=== PATIENT | female | born 2000 | race American Indian/Alaskan Native ===

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

== ENCOUNTER 2021-11-15 03:55 | Emergency (ER) | payer SELFPAY ==
[2021-11-15] MEDS ORDERED: predniSONE 20 MG TAB PO ONE (10:05)
[2021-11-15 10:52] LABS: Bilirubin,Urine NEG (Negative); Blood,Urine NEG (Negative); Color,Urine Yellow (Yellow); Mucus,Urine FEW /HPF; Protein,Urine <15 mg/dL mg/dL (Negative); Urobilinogen,Urine < 2.0 mg/dL (<2.0); WBC,Urine < 1.0 /HPF (0.0-6.0)
[2021-11-15 10:54] LABS: HCG Qualitative,Urine Negative (Negative)
--- NOTE | 2021-11-15 11:09 | Emergency Department Report ---
ED Dizziness HPI - General Chief Complaint: Anxiety Stated Complaint: ANXIETY/BRONCHITIS Time Seen by Provider: 11/15/21 09:29 Source: patient, EMS Mode of arrival: Ambulatory Limitations: No Limitations - History of Present Illness Initial Comments: 20-year-old black female with a past medical history of depression presents to the emergency department for evaluation of dizziness. She states that around 2 AM she was trying to get home and had sudden onset of dizziness and states that it was also hard for her to swallow with coughing, nausea, headache, and runny nose. She denies fever and sick contacts. She states that she has not taken any medication for her symptoms but came to the emergency department for further evaluation. MD Complaint: dizziness -: Sudden, hour(s) Timing: sudden onset Description: lightheadedness History of Same: No History of Trauma: No Severity: moderate Associated Symptoms: cough. denies: ataxia, chest pain, confusion, diaphoresis, fever/chills, loss of appetite, malaise, rash, seizure, shortness of breath, syncope, weakness - Related Data Previous Rx's Medication Instructions Recorded Last Taken Type Amoxicillin/K Clav Tab [Augmentin 1 tab PO Q12HR #20 tab 01/11/20 Unknown Rx 875 mg] Ondansetron [Zofran Odt] 4 mg PO Q8HR #14 tab.rapdis 01/11/20 Unknown Rx Dicyclomine [Bentyl] 20 mg PO QID PRN #20 tablet 06/08/20 Unknown Rx Ferrous Sulfate [Ferrous Sulfate 324 mg PO DAILY #30 tablet. 06/27/20 Unknown Rx 324 MG] Ibuprofen [Motrin 800 MG tab] 800 mg PO Q8HR #30 tablet 06/27/20 Unknown Rx Levocetirizine Dihydrochloride 5 mg PO QPM #15 tab 11/15/21 Unknown Rx [Xyzal] Allergies Allergy/AdvReac Type Severity Reaction Status Date / Time aripiprazole [From Abilify] Allergy Hives Verified 06/27/20 18:46 sertraline [From Zoloft] Allergy Headache Verified 06/27/20 18:46 ED Review of Systems ROS: Stated complaint: ANXIETY/BRONCHITIS Other details as noted in HPI Comment: All other systems reviewed and negative Constitutional: denies: chills, fever Eyes: eye pain. denies: vision change ENT: congestion Respiratory: cough. denies: shortness of breath, SOB with exertion, SOB at rest, stridor, wheezing Cardiovascular: denies: chest pain, palpitations, dyspnea on exertion, orthopnea, edema, syncope, paroxysmal nocturnal dyspnea Gastrointestinal: denies: abdominal pain, nausea, vomiting Genitourinary: denies: urgency, dysuria Skin: denies: rash, lesions Neurological: headache. denies: weakness, numbness, paresthesias, confusion, abnormal gait ED Past Medical Hx - Past Medical History Hx Hypertension: Yes Hx Psychiatric Treatment: Yes (Depression) Additional medical history: HIGH CHOLESTROL. Leaky heart syndrome. Morbid Obesity, anemia - Surgical History Additional Surgical History: IN SEPTEMBER 2019 - Social History Smoking Status: Never Smoker - Medications Home Medications: Home Medications Medication Instructions Recorded Confirmed Last Taken Type Amoxicillin/K Clav Tab [Augmentin 1 tab PO Q12HR #20 tab 01/11/20 Unknown Rx 875 mg] Ondansetron [Zofran Odt] 4 mg PO Q8HR #14 tab.rapdis 01/11/20 Unknown Rx Dicyclomine [Bentyl] 20 mg PO QID PRN #20 tablet 06/08/20 Unknown Rx Ferrous Sulfate [Ferrous Sulfate 324 mg PO DAILY #30 tablet.dr 06/27/20 Unknown Rx 324 MG] Ibuprofen [Motrin 800 MG tab] 800 mg PO Q8HR #30 tablet 06/27/20 Unknown Rx Levocetirizine Dihydrochloride 5 mg PO QPM #15 tab 11/15/21 Unknown Rx [Xyzal] ED Physical Exam - General Limitations: No Limitations General appearance: alert, in no apparent distress - Head Head exam: Present: atraumatic, normocephalic - Eye Eye exam: Present: normal appearance. Absent: conjunctival injection - ENT ENT exam: Absent: normal exam (Bilateral nasal mucosal edema with tenderness to bilateral frontal sinus areas), normal orophraynx (Erythema noted to posterior oropharynx) - Neck Neck exam: Present: normal inspection, full ROM. Absent: tenderness, lymphadenopathy - Respiratory Respiratory exam: Present: normal lung sounds bilaterally, chest wall tenderness. Absent: respiratory distress, wheezes, rales, rhonchi, stridor - Cardiovascular Cardiovascular Exam: Present: regular rate, normal heart sounds - GI/Abdominal GI/Abdominal exam: Present: soft, normal bowel sounds. Absent: distended, tenderness, guarding, rebound, rigid - Extremities Exam Extremities exam: Present: normal inspection, full ROM, normal capillary refill. Absent: tenderness, pedal edema, joint swelling, calf tenderness - Back Exam Back exam: Present: normal inspection. Absent: CVA tenderness (R), CVA tenderness (L), vertebral tenderness - Neurological Exam Neurological exam: Present: alert, oriented X3, normal gait - Psychiatric Psychiatric exam: Present: normal affect, normal mood - Skin Skin exam: Present: warm, dry, intact, normal color ED Course Vital Signs 11/15/21 11/15/21 04:10 11:21 Temperature 98 F 98.2 F Pulse Rate 84 86 Respiratory 18 20 Rate Blood Pressure 130/76 148/99 [Right] O2 Sat by Pulse 100 99 Oximetry ED Medical Decision Making - Medical Decision Making 20-year-old black female with a past medical history of depression presents to the emergency department for evaluation of dizziness. She states that around 2 AM she was trying to get home and had sudden onset of dizziness and states that it was also hard for her to swallow with coughing, nausea, headache, and runny nose. She denies fever and sick contacts. She states that she has not taken any medication for her symptoms but came to the emergency department for further evaluation. Urine negative for UTI and . Assessment consistent with sinusitis. Patient given one-time dose of prednisone in the emergency department will be discharged home with Xyzal to take every night. She is advised to take medications as prescribed, increase noncaffeinated fluid intake, follow-up with primary care provider for further evaluation and management, and return to the emergency department as needed. She verbalizes understanding of and agreement with plan of care. Critical care attestation.: If time is entered above; I have spent that time in minutes in the direct care of this critically ill patient, excluding procedure time. ED Disposition Clinical Impression: Sinusitis Qualifiers: Sinusitis location: frontal Chronicity: acute Recurrence: non-recurrent Qualified Code(s): J01.10 - Acute frontal sinusitis, unspecified Disposition: HOME / SELF CARE / HOMELESS Is pt being admited?: No Does the pt Need Aspirin: No Condition: Stable Instructions: Sinusitis, Adult, [id number], How to Perform a Sinus Rinse, [id number] Additional Instructions: Take medications as prescribed. Follow-up with primary care provider if no improvement or worsening symptoms. Return to the emergency department as needed. Prescriptions: Levocetirizine Dihydrochloride [Xyzal] 5 mg PO QPM #15 tab Referrals: PETE KO MD [Staff Physician] - 3-5 Days Forms: Work/School Release Form(ED) Time of Disposition: 11:09
[2021-11-15 11:22] VITALS: BP 148/99
== END 2021-11-15 11:40 | disposition home or self-care (01) ==
LOC: ED 03:55
DX: J01.90 Acute sinusitis, unspecified (principal); Z88.1 Allergy status to other antibiotic agents; I10 Essential (primary) hypertension
CPT/HCPCS: 81001; 81025; 99283

== ENCOUNTER 2021-11-29 17:09 | Emergency (ER) | payer MEDICAID ==
[2021-11-29 17:45] VITALS: BP 155/95
== END 2021-11-30 14:47 | disposition left against medical advice (07) ==
LOC: ED 17:09
DX: M79.89 Other specified soft tissue disorders (principal); Z53.21 Procedure and treatment not carried out due to patient leaving prior to being seen by health care provider

== ENCOUNTER 2021-11-30 01:32 | Emergency (ER) | payer MEDICAID ==
[2021-11-30 08:09] VITALS: BP 171/79
--- NOTE | 2021-11-30 09:17 | Emergency Department Report ---
ED General Adult HPI - General Chief complaint: Abdominal Pain Stated complaint: LIGHT HEADED/LEG SWOLLEN Time Seen by Provider: 11/30/21 08:48 Source: patient Mode of arrival: Ambulatory Limitations: No Limitations - History of Present Illness Initial comments: Is a 20-year-old female with history of obesity, abnormal menses. Patient presents for episode of dizziness lightheadedness. On yesterday. Patient states she usually walks 1 mile plus daily however yesterday she experienced an episode of dizziness and lightheadedness. Concern for last menstrual cycle 7 months ago patient notes irregular menses. Has been no fevers no chills no nausea or vomiting. Patient does note bilateral lower extremity swelling x2 weeks. Swelling is usually relieved with rest and lying down. In generally returns by the end of each day. Ther is no chest pain,no shortness of breath, no stridor, no history of hypertension is been no fall injury or trauma, there is been no fever or chills. Patient drove self to ED patient is amatory with steady gait there is no acute distress at this time. Severity scale (0 -10): 2 - Related Data Previous Rx's Medication Instructions Recorded Last Taken Type Amoxicillin/K Clav Tab [Augmentin 1 tab PO Q12HR #20 tab 01/11/20 Unknown Rx 875 mg] Ondansetron [Zofran Odt] 4 mg PO Q8HR #14 tab.rapdis 01/11/20 Unknown Rx Dicyclomine [Bentyl] 20 mg PO QID PRN #20 tablet 06/08/20 Unknown Rx Ferrous Sulfate [Ferrous Sulfate 324 mg PO DAILY #30 tablet. 06/27/20 Unknown Rx 324 MG] Ibuprofen [Motrin 800 MG tab] 800 mg PO Q8HR #30 tablet 06/27/20 Unknown Rx Levocetirizine Dihydrochloride 5 mg PO QPM #15 tab 11/15/21 Unknown Rx [Xyzal] Allergies Allergy/AdvReac Type Severity Reaction Status Date / Time aripiprazole [From Abilify] Allergy Hives Verified 06/27/20 18:46 sertraline [From Zoloft] Allergy Headache Verified 06/27/20 18:46 ED Review of Systems ROS: Stated complaint: LIGHT HEADED/LEG SWOLLEN Other details as noted in HPI Constitutional: denies: chills, fever Eyes: denies: eye pain, eye discharge, vision change ENT: denies: ear pain, throat pain Respiratory: denies: cough, shortness of breath, wheezing Cardiovascular: denies: chest pain, palpitations, dyspnea on exertion, paroxysmal nocturnal dyspnea Endocrine: no symptoms reported Gastrointestinal: denies: abdominal pain, nausea, vomiting, diarrhea Genitourinary: abnormal menses. denies: urgency, dysuria, frequency, hematuria Musculoskeletal: other (Bilateral lower extremity swelling). denies: back pain, joint swelling, arthralgia Skin: denies: rash, lesions Neurological: vertigo. denies: headache, weakness, numbness, paresthesias, confusion Psychiatric: denies: anxiety, depression Hematological/Lymphatic: denies: easy bleeding, easy bruising ED Past Medical Hx - Past Medical History Previous Medical History?: Yes Hx Hypertension: Yes Hx Psychiatric Treatment: Yes (Depression) Additional medical history: HIGH CHOLESTROL. Leaky heart syndrome. Morbid Obesity, anemia - Surgical History Past Surgical History?: Yes Additional Surgical History: IN SEPTEMBER 2019 - Social History Smoking Status: Never Smoker Substance Use Type: None - Medications Home Medications: Home Medications Medication Instructions Recorded Confirmed Last Taken Type Amoxicillin/K Clav Tab [Augmentin 1 tab PO Q12HR #20 tab 01/11/20 Unknown Rx 875 mg] Ondansetron [Zofran Odt] 4 mg PO Q8HR #14 tab.rapdis 01/11/20 Unknown Rx Dicyclomine [Bentyl] 20 mg PO QID PRN #20 tablet 06/08/20 Unknown Rx Ferrous Sulfate [Ferrous Sulfate 324 mg PO DAILY #30 tablet.dr 06/27/20 Unknown Rx 324 MG] Ibuprofen [Motrin 800 MG tab] 800 mg PO Q8HR #30 tablet 06/27/20 Unknown Rx Levocetirizine Dihydrochloride 5 mg PO QPM #15 tab 11/15/21 Unknown Rx [Xyzal] ED Physical Exam - General Limitations: No Limitations General appearance: alert, in no apparent distress - Head Head exam: Present: normocephalic, normal inspection - Eye Eye exam: Present: EOMI Pupils: Present: normal accommodation - ENT ENT exam: Present: mucous membranes moist - Neck Neck exam: Present: normal inspection, full ROM. Absent: tenderness, lymphadenopathy - Respiratory Respiratory exam: Present: normal lung sounds bilaterally. Absent: respiratory distress, wheezes, chest wall tenderness - Cardiovascular Cardiovascular Exam: Present: regular rate, normal rhythm, normal heart sounds. Absent: systolic murmur, diastolic murmur, rubs, gallop - GI/Abdominal GI/Abdominal exam: Present: soft, normal bowel sounds, other (Obese) - Rectal Rectal exam: Present: deferred - Extremities Exam Extremities exam: Present: normal inspection, full ROM, normal capillary refill, other (Bilateral lower extremity swelling mild pitting +1) - Expanded Lower Extremity Exam Left Ankle exam: Present: full ROM, swelling. Absent: tenderness, erythema, anterior draw sign Foot/Toe exam: Present: full ROM, swelling. Absent: tenderness Neuro vascular tendon exam: Absent: pulse deficit, motor deficit, sensory deficit, tendon deficit Gait: Positive: observed and normal Right Ankle exam: Present: full ROM. Absent: tenderness, swelling, erythema, anterior draw sign Foot/Toe exam: Present: full ROM, swelling. Absent: tenderness Neuro vascular tendon exam: Absent: pulse deficit, motor deficit, sensory deficit, tendon deficit Gait: Positive: observed and normal - Back Exam Back exam: Present: normal inspection, full ROM. Absent: CVA tenderness (R), CVA tenderness (L) - Neurological Exam Neurological exam: Present: alert, oriented X3, CN II-XII intact, normal gait - Expanded Neurological Exam Expanded Patient oriented to: Present: person, place, time Motor strength exam: RUE: 5, LUE: 5, RLE: 5, LLE: 5 Best Eye Response ([place]): (4) open spontaneously Best Motor Response ([place]): (6) obeys commands Best Verbal Response ([place]): (5) oriented [place] Total: 15 - Psychiatric Psychiatric exam: Present: normal affect, normal mood - Skin Skin exam: Present: warm, dry, intact, normal color. Absent: rash ED Course Vital Signs 11/30/21 11/30/21 01:48 08:06 Temperature 98.7 F 97.6 F Pulse Rate 68 83 Respiratory 18 20 Rate Blood Pressure 113/78 Blood Pressure 171/79 [Right] O2 Sat by Pulse 100 98 Oximetry ED Medical Decision Making - Lab Data Labs 11/30/21 11:39 Urine Color Yellow Urine Turbidity Clear Urine pH 6.0 Ur Specific [place] 1.015 Urine Protein <15 mg/dl Urine Glucose (UA) Neg Urine Ketones Neg Urine Blood Neg Urine Nitrite Neg Urine Bilirubin Neg Urine Urobilinogen < 2.0 Ur Leukocyte Esterase Neg Urine WBC (Auto) 1.0 Urine RBC (Auto) 1.0 U Epithel Cells (Auto) 7.0 Urine Mucus Few Urine HCG, Qual Negative - Medical Decision Making Patient advised symptoms are resolved. patient is currently alert oriented x3 ambulatory with steady gait, denies shortness of breath, there is no dizziness ,no nausea, no vomiting ,no fever, no chills , pt is eating lunch at bedside at this time, denies symptoms, hCG is negative patient advised symptoms are improved. Plan to see at home, take [id number] NSAIDs as needed for pain. Follow-up with your primary care doctor. Patient verbalized agreement understanding with discharge plan. Patient DC'd home in stable condition at this time. Critical care attestation.: If time is entered above; I have spent that time in minutes in the direct care of this critically ill patient, excluding procedure time. ED Disposition Clinical Impression: Stress Disposition: 01 HOME / SELF CARE / HOMELESS Is pt being admited?: No Does the pt Need Aspirin: No Condition: Stable Instructions: Abdominal Pain (ED) Additional Instructions: Hydrate as directed, follow-up with your doctor in 2 to 3 days. Return to emergency department should symptoms worsen or return. Referrals: KORINA WINTERS MD [Staff Physician] - 3-5 Days Forms: Work/School Release Form(ED) Time of Disposition: 12:00
[2021-11-30 11:51] LABS: Bilirubin,Urine NEG (Negative); Blood,Urine NEG (Negative); Color,Urine Yellow (Yellow); Mucus,Urine FEW /HPF; Protein,Urine <15 mg/dL mg/dL (Negative); Urobilinogen,Urine < 2.0 mg/dL (<2.0)
[2021-11-30 11:55] LABS: HCG Qualitative,Urine Negative (Negative)
== END 2021-11-30 12:23 | disposition home or self-care (01) ==
LOC: ED 01:32
DX: F43.9 Reaction to severe stress, unspecified (principal); I10 Essential (primary) hypertension; Z88.8 Allergy status to other drugs, medicaments and biological substances
CPT/HCPCS: 81001; 81025; 99283

== ENCOUNTER 2021-12-12 23:43 | Emergency (ER) | payer MEDICAID ==
[2021-12-13 09:15] LABS: Hematocrit 35.2 % (30.3-42.9); Hemoglobin 11.2 gm/dl (10.1-14.3); Mean Corpuscular HGB Conc 32 % (30-34); Mean Corpuscular Volume 84 fl (79-97); Platelet Count 248 K/mm3 (140-440); Red Blood Count 4.18 M/mm3 (3.65-5.03); Red Cell Distribution Width 15.6 % (13.2-15.2)
--- NOTE | 2021-12-13 09:39 | Vascular Lab Report ---
DUPLEX DOPPLER LOWER EXTREMITY VEINS, BILATERAL INDICATION / CLINICAL INFORMATION: leg swelling and pain. TECHNIQUE: Duplex doppler imaging was performed through the veins of both lower extremities using venous russel parag and other maneuvers. COMPARISON: None available. FINDINGS: RIGHT COMMON FEMORAL VEIN: Negative. RIGHT FEMORAL VEIN: Negative. RIGHT POPLITEAL VEIN: Negative. RIGHT CALF VEINS: Negative. LEFT COMMON FEMORAL VEIN: Negative. LEFT FEMORAL VEIN: Negative. LEFT POPLITEAL VEIN: Negative. LEFT CALF VEINS: Negative. ADDITIONAL FINDINGS: None. IMPRESSION: 1. No sonographic evidence for DVT in either lower extremity. Signer Name: Ken Barr MD Signed: 12/13/2021 9:34 AM Workstation Name: [id number]
[2021-12-13 11:13] LABS: Alanine Aminotransferase 24 units/L (7-56); BUN/Creatinine Ratio 16; Blood Urea Nitrogen 13 mg/dL (7-17); Hemolysis Index 3
--- NOTE | 2021-12-13 11:27 | Emergency Department Report ---
ED Extremity Problem HPI - General Chief complaint: Extremity Problem,Nontraumatic Stated complaint: SWOLLEN FEET/DEPRESSED Time Seen by Provider: 12/13/21 07:32 Source: patient Mode of arrival: Ambulatory Limitations: No Limitations - History of Present Illness Initial comments: 20-year-old black female with a past medical history of morbid obesity presents to the emergency department for evaluation of 3 to 4-month history of bilateral leg swelling. She denies chest pain, shortness of breath, fever, and hemoptysis. States that she works a lot and walks around a lot and has only minimal improvement after she props her legs up. She states that she was wearing compression hose but they made her legs itch so she stopped. MD Complaint: extremity pain, extremity swelling -: Gradual, month(s) (3-4) Location: bilateral lower extremity History of Same: Yes -: No myalgia, No arthralgia, No fever, No associated dyspnea, No associated chest pain Radiation: none Severity scale (0 -10): 6 Quality: aching Consistency: constant Associated Symptoms: denies other symptoms - Related Data Previous Rx's Medication Instructions Recorded Last Taken Type Amoxicillin/K Clav Tab [Augmentin 1 tab PO Q12HR #20 tab 01/11/20 Unknown Rx 875 mg] Ondansetron [Zofran Odt] 4 mg PO Q8HR #14 tab.rapdis 01/11/20 Unknown Rx Dicyclomine [Bentyl] 20 mg PO QID PRN #20 tablet 06/08/20 Unknown Rx Ferrous Sulfate [Ferrous Sulfate 324 mg PO DAILY #30 tablet. 06/27/20 Unknown Rx 324 MG] Ibuprofen [Motrin 800 MG tab] 800 mg PO Q8HR #30 tablet 06/27/20 Unknown Rx Levocetirizine Dihydrochloride 5 mg PO QPM #15 tab 11/15/21 Unknown Rx [Xyzal] hydrOXYzine PAMOATE [Vistaril] 25 mg PO Q6HR PRN #30 capsule 12/13/21 Unknown Rx Allergies Allergy/AdvReac Type Severity Reaction Status Date / Time aripiprazole [From Abilify] Allergy Hives Verified 06/27/20 18:46 sertraline [From Zoloft] Allergy Headache Verified 06/27/20 18:46 ED Review of Systems ROS: Stated complaint: SWOLLEN FEET/DEPRESSED Other details as noted in HPI Comment: All other systems reviewed and negative Constitutional: denies: chills, fever, weakness Eyes: denies: eye pain Respiratory: denies: cough, orthopnea, shortness of breath, SOB with exertion, SOB at rest, stridor, wheezing Cardiovascular: edema. denies: chest pain, palpitations, dyspnea on exertion, orthopnea, syncope, paroxysmal nocturnal dyspnea Gastrointestinal: denies: abdominal pain, nausea, vomiting, diarrhea, hematemesis, melena, hematochezia Musculoskeletal: denies: back pain Neurological: denies: headache, weakness ED Past Medical Hx - Past Medical History Hx Hypertension: Yes Hx Psychiatric Treatment: Yes (Depression) Additional medical history: HIGH CHOLESTROL. Leaky heart syndrome. Morbid Obesity, anemia - Surgical History Additional Surgical History: IN SEPTEMBER 2019 - Social History Smoking Status: Never Smoker Substance Use Type: None - Medications Home Medications: Home Medications Medication Instructions Recorded Confirmed Last Taken Type Amoxicillin/K Clav Tab [Augmentin 1 tab PO Q12HR #20 tab 01/11/20 Unknown Rx 875 mg] Ondansetron [Zofran Odt] 4 mg PO Q8HR #14 tab.rapdis 01/11/20 Unknown Rx Dicyclomine [Bentyl] 20 mg PO QID PRN #20 tablet 06/08/20 Unknown Rx Ferrous Sulfate [Ferrous Sulfate 324 mg PO DAILY #30 tablet.dr 06/27/20 Unknown Rx 324 MG] Ibuprofen [Motrin 800 MG tab] 800 mg PO Q8HR #30 tablet 06/27/20 Unknown Rx Levocetirizine Dihydrochloride 5 mg PO QPM #15 tab 11/15/21 Unknown Rx [Xyzal] hydrOXYzine PAMOATE [Vistaril] 25 mg PO Q6HR PRN #30 capsule 12/13/21 Unknown Rx ED Physical Exam - General Limitations: No Limitations General appearance: alert, in no apparent distress - Head Head exam: Present: atraumatic, normocephalic - Eye Eye exam: Present: normal appearance. Absent: conjunctival injection - Neck Neck exam: Present: normal inspection, full ROM. Absent: tenderness, lymphadenopathy - Respiratory Respiratory exam: Present: normal lung sounds bilaterally. Absent: respiratory distress, wheezes, rales, rhonchi, stridor, chest wall tenderness - Cardiovascular Cardiovascular Exam: Present: regular rate, normal heart sounds - GI/Abdominal GI/Abdominal exam: Present: soft, normal bowel sounds. Absent: distended, tenderness, guarding, rebound, rigid - Expanded Lower Extremity Exam Left Lower Leg exam: Present: tenderness, swelling, erythema Ankle exam: Present: tenderness, swelling Foot/Toe exam: Present: tenderness, swelling Neuro vascular tendon exam: Present: no vascular compromise. Absent: pulse deficit, abnormal cap refill, extremity cold to touch, pallor Gait: Positive: observed and normal Right Lower Leg exam: Present: tenderness, swelling, erythema. Absent: normal inspection Ankle exam: Present: tenderness, swelling Foot/Toe exam: Present: tenderness, swelling Neuro vascular tendon exam: Present: no vascular compromise. Absent: abnormal cap refill, motor deficit, sensory deficit, extremity cold to touch, pallor Gait: Positive: observed and normal - Back Exam Back exam: Present: normal inspection. Absent: CVA tenderness (R), CVA tenderness (L), vertebral tenderness - Neurological Exam Neurological exam: Present: alert, oriented X3, normal gait - Psychiatric Psychiatric exam: Present: normal affect, normal mood - Skin Skin exam: Present: warm, dry, intact, normal color ED Course Vital Signs 12/13/21 12/13/21 00:07 14:42 Temperature 98.4 F 97.6 F Pulse Rate 90 74 Respiratory 18 14 Rate Blood Pressure 162/94 Blood Pressure 118/78 [Left] O2 Sat by Pulse 99 100 Oximetry ED Medical Decision Making - Lab Data Result diagrams: 12/13/21 08:02 12/13/21 08:02 - Radiology Data Radiology results: report reviewed, image reviewed Bilateral lower extremity venous Doppler: FINDINGS: RIGHT COMMON FEMORAL VEIN: Negative. RIGHT FEMORAL VEIN: Negative. RIGHT POPLITEAL VEIN: Negative. RIGHT CALF VEINS: Negative. LEFT COMMON FEMORAL VEIN: Negative. LEFT FEMORAL VEIN: Negative. LEFT POPLITEAL VEIN: Negative. LEFT CALF VEINS: Negative. ADDITIONAL FINDINGS: None. IMPRESSION: 1. No sonographic evidence for DVT in either lower extremity. - Medical Decision Making 20-year-old black female with a past medical history of morbid obesity presents to the emergency department for evaluation of 3 to 4-month history of bilateral leg swelling. She denies chest pain, shortness of breath, fever, and hemoptysis. States that she works a lot and walks around a lot and has only minimal improvement after she props her legs up. She states that she was wearing compression hose but they made her legs itch so she stopped. Noted to have 3+ edema bilateral lower extremities from underneath total with erythema edema noted to bilateral lower legs. BMP within normal limits, LFTs and creatinine within normal limits, and bilateral lower extremity ultrasound negative for DVT. Patient advised to use ELIZABETH hose, rest legs, elevate legs, and follow-up with her primary care provider for further evaluation and management. She complains of persistent itching to the legs, so she was given prescription for Vistaril to use as needed. She is advised to return to the emergency department for any concerning symptoms. She verbalizes understanding of and agreement with plan of care. Critical care attestation.: If time is entered above; I have spent that time in minutes in the direct care of this critically ill patient, excluding procedure time. ED Disposition Clinical Impression: Localized swelling of both lower extremities Disposition: 01 HOME / SELF CARE / HOMELESS Is pt being admited?: No Does the pt Need Aspirin: No Condition: Stable Instructions: Edema, [id number] Prescriptions: hydrOXYzine PAMOATE [Vistaril] 25 mg PO Q6HR PRN #30 capsule PRN Reason: Itching Referrals: PRIMARY CARE, [Primary Care Provider] - 3-5 Days Forms: Work/School Release Form(ED) Time of Disposition: 11:26
[2021-12-13 14:43] VITALS: BP 118/78
== END 2021-12-13 14:43 | disposition home or self-care (01) ==
LOC: ED 23:43
DX: M79.89 Other specified soft tissue disorders (principal); I10 Essential (primary) hypertension; F32.A Depression, unspecified; Z91.09 Other allergy status, other than to drugs and biological substances; Z79.899 Other long term (current) drug therapy
CPT/HCPCS: 36415; 80053; 83880; 85027; 93970; 99284

== ENCOUNTER 2021-12-26 01:36 | Emergency (ER) | payer MEDICAID ==
[2021-12-26 11:29] VITALS: BP 134/63
--- NOTE | 2021-12-26 11:30 | Emergency Department Report ---
ED Lower Extremity HPI - General Chief Complaint: Extremity Injury, Lower Stated Complaint: TINGLING IN FEET Time Seen by Provider: 12/26/21 11:12 Source: patient Mode of arrival: Ambulatory Limitations: No Limitations - History of Present Illness Initial Comments: Patient is a 20-year-old female presenting the ED with complaint of swelling in her left foot and leg for the past several days. She also complains of tingling and pain due to the swelling. Denies any fever or chills. - Related Data Previous Rx's Medication Instructions Recorded Last Taken Type Amoxicillin/K Clav Tab [Augmentin 1 tab PO Q12HR #20 tab 01/11/20 Unknown Rx 875 mg] Ondansetron [Zofran Odt] 4 mg PO Q8HR #14 tab.rapdis 01/11/20 Unknown Rx Dicyclomine [Bentyl] 20 mg PO QID PRN #20 tablet 06/08/20 Unknown Rx Ferrous Sulfate [Ferrous Sulfate 324 mg PO DAILY #30 tablet.dr 06/27/20 Unknown Rx 324 MG] Ibuprofen [Motrin 800 MG tab] 800 mg PO Q8HR #30 tablet 06/27/20 Unknown Rx Levocetirizine Dihydrochloride 5 mg PO QPM #15 tab 11/15/21 Unknown Rx [Xyzal] hydrOXYzine PAMOATE [Vistaril] 25 mg PO Q6HR PRN #30 capsule 12/13/21 Unknown Rx Furosemide [Lasix TAB] 40 mg PO QDAY #10 tablet 12/26/21 Unknown Rx Allergies Allergy/AdvReac Type Severity Reaction Status Date / Time aripiprazole [From Abilify] Allergy Hives Verified 06/27/20 18:46 sertraline [From Zoloft] Allergy Headache Verified 06/27/20 18:46 ED Review of Systems ROS: Stated complaint: TINGLING IN FEET Other details as noted in HPI Comment: All other systems reviewed and negative Constitutional: denies: chills, fever Respiratory: denies: cough, shortness of breath, wheezing Cardiovascular: denies: chest pain, palpitations Gastrointestinal: denies: abdominal pain, nausea, diarrhea Genitourinary: denies: urgency, dysuria, discharge Musculoskeletal: denies: back pain, joint swelling, arthralgia Skin: denies: rash, lesions Neurological: denies: headache, weakness, paresthesias ED Past Medical Hx - Past Medical History Hx Hypertension: Yes Hx Psychiatric Treatment: Yes (Depression) Additional medical history: HIGH CHOLESTROL. Leaky heart syndrome. Morbid Obesity, anemia - Surgical History Additional Surgical History: IN SEPTEMBER 2019 - Social History Smoking Status: Never Smoker Substance Use Type: None - Medications Home Medications: Home Medications Medication Instructions Recorded Confirmed Last Taken Type Amoxicillin/K Clav Tab [Augmentin 1 tab PO Q12HR #20 tab 01/11/20 Unknown Rx 875 mg] Ondansetron [Zofran Odt] 4 mg PO Q8HR #14 tab.rapdis 01/11/20 Unknown Rx Dicyclomine [Bentyl] 20 mg PO QID PRN #20 tablet 06/08/20 Unknown Rx Ferrous Sulfate [Ferrous Sulfate 324 mg PO DAILY #30 tablet.dr 06/27/20 Unknown Rx 324 MG] Ibuprofen [Motrin 800 MG tab] 800 mg PO Q8HR #30 tablet 06/27/20 Unknown Rx Levocetirizine Dihydrochloride 5 mg PO QPM #15 tab 11/15/21 Unknown Rx [Xyzal] hydrOXYzine PAMOATE [Vistaril] 25 mg PO Q6HR PRN #30 capsule 12/13/21 Unknown Rx Furosemide [Lasix TAB] 40 mg PO QDAY #10 tablet 12/26/21 Unknown Rx ED Physical Exam - General Limitations: No Limitations General appearance: alert, in no apparent distress, obese - Head Head exam: Present: atraumatic, normocephalic - Neck Neck exam: Present: normal inspection - Respiratory Respiratory exam: Present: normal lung sounds bilaterally, respiratory distress - Cardiovascular Cardiovascular Exam: Present: regular rate, normal rhythm, normal heart sounds - GI/Abdominal GI/Abdominal exam: Present: soft. Absent: distended, tenderness - Rectal Rectal exam: Present: deferred - Extremities Exam Extremities exam: Present: pedal edema (Bilateral nonpitting edema to both feet and legs). Absent: calf tenderness - Neurological Exam Neurological exam: Present: alert, oriented X3 - Psychiatric Psychiatric exam: Present: normal affect, normal mood - Skin Skin exam: Present: warm, dry, intact, normal color ED Course Vital Signs 12/26/21 02:23 Temperature 98.1 F Pulse Rate 86 Respiratory 16 Rate Blood Pressure 157/75 O2 Sat by Pulse 100 Oximetry ED Lower Extremity MDM - Medical Decision Making Patient presenting to ED with complaint of swelling in her left foot. On physical examination patient has symmetrical swelling of both legs and feet. Labs from previous visit on 12/13/2021 reviewed and were grossly unremarkable including a normal BNP. I suspect patient likely has peripheral edema/fluid retention. Will discharge home with Rx for Lasix. Patient instructed to follow-up with her PCP at her earliest convenience. Critical care attestation.: If time is entered above; I have spent that time in minutes in the direct care of this critically ill patient, excluding procedure time. ED Disposition Clinical Impression: Bilateral lower extremity edema Disposition: 01 HOME / SELF CARE / HOMELESS Is pt being admited?: No Condition: Stable Instructions: Peripheral Edema Referrals: PRIMARY CARE [Primary Care Provider] - 3-5 Days Time of Disposition: 11:35
== END 2021-12-26 12:08 | disposition home or self-care (01) ==
LOC: ED 01:36
DX: R60.0 Localized edema (principal); I10 Essential (primary) hypertension; Z88.8 Allergy status to other drugs, medicaments and biological substances
CPT/HCPCS: 99282